=== PATIENT | male | born 2000 | race Caucasian/White ===

== ENCOUNTER 2021-01-12 19:42 | Emergency (ER) | payer SELFPAY ==
[~2021-01-12] VITALS: Ht 177.8 cm; Wt 63.6 kg
[2021-01-12 19:44] VITALS: BP 130/68
[2021-01-12] MEDS ORDERED: LIDOcaine 1% W/epiNEPHrine 1:200,000 10ml vial IJ ONE (21:00)
[2021-01-12] MEDS ORDERED: TETanus/Pertussis (Acell)/Diphther VAC/PF (Tdap-Adult) 0.5ml syringe IMVAC ONE (21:00)
--- NOTE | 2021-01-12 21:06 | NUR ---
WOUND TO RIGHT INNTER THIGH BLEEDING CONTROLLED, PT REPORTS HE IRRIGATED IT AND PUT ANTIBIOTIC CREAM ON IT PRIOR TO COMING HERE. INCIDENT HAPPENED APROX 3 HR AGO. WILL NEED TETNUS SHOT. WOUND 6 CM X 4 CM
--- NOTE | 2021-01-12 22:24 | NUR ---
pa eugene at bedside SUTURING WOUND. TRIPLE ANTIBIOTIC AND NON STICK DRESSING TO BE APPLIED, THEN PT TO BE DC READY.
[2021-01-12] MEDS ORDERED: bacitracin 15gm ointment TP ONE (22:25)
== END 2021-01-12 22:44 | disposition home or self-care (01) ==
LOC: ER 19:42
DX: S71.111A Laceration without foreign body, right thigh, initial encounter (principal); W22.8XXA Striking against or struck by other objects, initial encounter; Y93.89 Activity, other specified; Y92.89 Other specified places as the place of occurrence of the external cause; Y99.8 Other external cause status
CPT/HCPCS: 12002; 90471; 90715; 99283

== ENCOUNTER 2021-04-24 00:13 | Inpatient (IN) | payer BC ==
[~2021-04-24] VITALS: Ht 172.7 cm; Wt 63.6 kg
[2021-04-24 01:06] LABS: ALANINE AMINOTRANSFERASE 22 U/L (12-78); ALBUMIN/GLOBULIN RATIO 1.3 (1.1-1.5); ALKALINE PHOSPHATASE 72 IU/L (20-180); ANION GAP 12 (8-16); ASPARTATE AMINO TRANSFERASE 14 U/L (10-37); BILIRUBIN,TOTAL 0.4 MG/DL (0.1-1.0); BLOOD UREA NITROGEN 10 MG/DL (7-18); BUN/CREATININE RATIO 12.7 (5.4-32.0); CALCIUM 8.7 MG/DL (8.5-10.1); CHLORIDE 108 MMOL/L (99-107); CREATININE 0.79 MG/DL (0.60-1.10); GLUCOSE 104 MG/DL (70-104); LIPASE 136 U/L (73-393); POTASSIUM 3.5 MMOL/L (3.5-5.1); SODIUM 145 MMOL/L (135-145); TOTAL CARBON DIOXIDE 25.5 MMOL/L (24-32); TOTAL PROTEIN 7.2 G/DL (6.4-8.2); eGFR > 90 ML/MIN
[2021-04-24] MEDS ORDERED: morphine 4 MG/ML inj SYRINge IV ONE (01:20)
[2021-04-24] MEDS ORDERED: ondansetron/PF 4mg/2ml inj IV ONE (01:20)
[2021-04-24 01:22] LABS: BASOPHILS % (AUTO) 0.6 % (0-1); EOSINOPHILS % (AUTO) 0.9 % (0-6); LYMPHOCYTES # (AUTO) 2.3 X10'3 (1.1-4.8); LYMPHOCYTES % (AUTO) 45.2 % (21-51); MEAN CORPUSCULAR HEMOGLOBIN 29.7 PG (27.0-31.0); MEAN CORPUSCULAR HGB CONC 34.1 g/dL (33.0-36.5); MEAN CORPUSCULAR VOLUME 86.9 FL (78-98); MEAN PLATELET VOLUME 8.9 FL (7.4-10.4); MONOCYTES # (AUTO) 0.5 X10'3 (0-0.9); NEUTROPHILS # (AUTO) 2.3 X10'3 (1.8-7.7); NEUTROPHILS % (AUTO) 44.3 % (42-75); PLATELET COUNT 285 X10'3 (140-440); RED BLOOD COUNT 5.07 X10'6 (4.70-6.10); RED CELL DISTRIBUTION WIDTH 12.5 % (11.5-14.5); WHITE BLOOD COUNT 5.1 X10'3 (4.5-11.0)
[2021-04-24] MEDS ORDERED: HYDROmorphone 1 mg/ml syringe IV ONE (04:55)
--- NOTE | 2021-04-24 05:18 | NUR ---
PT HAS HIGH ANXIETY AND IS NERVOUS ABOUT NG TUBE INSERTION. MD ORDERED DILAUDID FOR PAIN CONTROL PRIOR TO INSERTION OF TUBE. PT WAS MEDICATED PRIOR TO PROCEDURE. HE BARELY TOLERATED THE COVID SWAB AND WAS RESISTING THE PLACEMENT OF THE NG TUBE. I ATTEMPTED THE LEFT NARE WITH A 16f AND ANOTHER RN ATTEMPTED THE RIGHT NARE WITH THE 16F. WE THEN ATTEMPTED A 14F IN THE LEFT NARE AND WAS AGAIN UNSUCCESSFUL. PT WAS GIVEN A FEW MINUTES TO COMPOSE HIMSELF HE IS SOBBING HYSTERICALLY.
[2021-04-24] MEDS ORDERED: DUPI300S SQ (09:55)
--- NOTE | 2021-04-24 09:59 | NUR ---
DR. SEARS INFORMED THAT TRAVEL COORDINATOR WAS UNABLE TO GET NG TUBE INSERTED. NEW ORDERS RECEIVED AND THIS NURSE WILL TRY TO REINSERT NG TUBE.
[2021-04-24] MEDS ORDERED: LIDOcaine 2% 10ml TOPICAL JELLY (Urojet) MM ONE (10:00)
[2021-04-24] MEDS ORDERED: LORazepam 2 mg/ml vial IV ONE ×2 (10:00→20:00)
[2021-04-24] MEDS ORDERED: diatr meglu/diatrizoate 30ml oral sol.-(3 dose) bottle PO SCH (10:17)
[2021-04-24] MEDS: diatr meglu/diatrizoate 30ml oral sol.-(3 dose) bottle PO SCH ×3 (10:30→16:14)
[2021-04-24] MEDS: normal saline 1000ml 1,000 ML IV SCH ×2 (10:36→15:10)
[2021-04-24] MEDS: heparin, porcine 5000 units/ml vial SQ SCH ×2 (10:38→20:53)
[2021-04-24] MEDS: ondansetron/PF 4mg/2ml inj IV PRN ×2 (10:43→22:57)
--- NOTE | 2021-04-24 10:46 | NUR ---
NGT placed down L nares. Pt tolerated the procedure. +auscilation of air to confirm placement. Pt's lower abd pain comes in waves.
[2021-04-24] MEDS ORDERED: magnesium hydroxide 30ml (MOM) UD suspension NG PRN (13:15)
[2021-04-24] MEDS: HYDROmorphone inj. 0.5 MG/0.5 ML DISP.SYRIN IV PRN ×2 (13:46→19:46)
[2021-04-24 14:08] LABS: CLARITY,URINE CLEAR (Clear); COLOR,URINE YELLOW (Yellow); GLUCOSE, URINE NEGATIVE (Neg); KETONES,URINE NEGATIVE (Neg); LEUKOCYTE ESTERASE ,URINE NEGATIVE (Neg); NITRITES, URINE NEGATIVE (Neg); OCCULT BLOOD,URINE NEGATIVE (Neg); PROTEIN,URINE NEGATIVE (Neg); UROBILINOGEN,URINE 0.2 E.U/dL (0.2-1.0)
[2021-04-24 14:10] LABS: UA COLLECTION TYPE NON-SPECIFIED
--- NOTE | 2021-04-24 16:07 | NUR ---
Report given to JAYE Jiménez on the Surgical floor.
--- NOTE | 2021-04-24 17:35 | NUR ---
Received pt from ED Addendum: 04/24/21 at 1902 by Megan Cortez RN pt pulled his NG and was vomiting, crying and screaming. new NG will be reinserted pre 's orders.
[2021-04-24] MEDS ORDERED: Neutra Phos packet PO PRN (18:10)
--- NOTE | 2021-04-24 18:10 | NUR ---
Patient in room [facility] 341. I have received report from JAYE Gumzan and had the opportunity to ask questions and assume patient care.
--- NOTE | 2021-04-24 18:15 | NUR ---
Problems reprioritized. Patient report given, questions answered & plan of care reviewed with maris CEE.
[2021-04-24 19:00] VITALS: BP 114/74
[2021-04-24] MEDS: docusate sodium 100mg/10ml UD cup NG SCH (20:53)
[2021-04-24 21:00] VITALS: BP 122/69
[2021-04-24 21:45] LABS: BASOPHILS % (AUTO) 0.2 % (0-1); EOSINOPHILS % (AUTO) 0.1 % (0-6); HEMATOCRIT 46.1 % (42.0-52.0); HEMOGLOBIN 15.6 g/dl (14.0-17.9); LYMPHOCYTES # (AUTO) 0.8 X10'3 (1.1-4.8); LYMPHOCYTES % (AUTO) 7.2 % (21-51); MEAN CORPUSCULAR HGB CONC 33.8 g/dL (33.0-36.5); MEAN CORPUSCULAR VOLUME 88.8 FL (78-98); MEAN PLATELET VOLUME 8.3 FL (7.4-10.4); MONOCYTES # (AUTO) 0.7 X10'3 (0-0.9); MONOCYTES % (AUTO) 6.4 % (2-12); NEUTROPHILS # (AUTO) 9.1 X10'3 (1.8-7.7); NEUTROPHILS % (AUTO) 86.1 % (42-75); PLATELET COUNT 265 X10'3 (140-440); RED BLOOD COUNT 5.19 X10'6 (4.70-6.10); RED CELL DISTRIBUTION WIDTH 12.7 % (11.5-14.5); WHITE BLOOD COUNT 10.6 X10'3 (4.5-11.0)
--- NOTE | 2021-04-24 22:28 | NUR ---
Patient prepped for surgery
[2021-04-24] MEDS ORDERED: morphine 2 MG/ML inj. syringe IV PRN (22:40)
[2021-04-24] MEDS ORDERED: proCHLORperazine 10 MG/2 ml inj IV PRN (22:40)
[2021-04-24] MEDS ORDERED: ringers solution, lacted 1,000 ML IV SCH (22:40)
[2021-04-24] MEDS ORDERED: ondansetron/PF 4mg/2ml inj IV PRN (22:40)
[2021-04-24] MEDS ORDERED: meperidine/PF 25mg/ml syringe IV PRN ×3 (22:40)
[2021-04-24] MEDS ORDERED: morphine 4 MG/ML inj SYRINge IV PRN (22:40)
[2021-04-24] MEDS ORDERED: midazolam 1 mg/ML 2ml injection ONE (22:59)
[2021-04-24] MEDS ORDERED: fentaNYL /PF 50mcg/ml 5ml ampule ONE (23:00)
[2021-04-24 23:05] VITALS: BP 121/67
[2021-04-24 23:07] VITALS: BP 121/67
[2021-04-24] MEDS ORDERED: LIDOcaine 2% (20mg/ml) 5ml vial ONE (23:19)
[2021-04-24] MEDS ORDERED: propofol inj 20 ML IV ONE (23:19)
[2021-04-24] MEDS ORDERED: cefazolin/dext.iso 2gm/100ml BAG IV ONE (23:20)
[2021-04-24] MEDS ORDERED: ondansetron/PF 4mg/2ml inj ONE (23:20)
[2021-04-24] MEDS ORDERED: neostigmine methylsulfate 1 MG/ML 10ml vial ONE (23:20)
[2021-04-24] MEDS ORDERED: sevoflurane 250ml liquid IH ONE (23:20)
[2021-04-24] MEDS ORDERED: rocuronium 10mg/ml inj IV ONE (23:20)
[2021-04-24] MEDS ORDERED: dexamethasone sod phosphate 10mg/ml inj ONE (23:20)
[2021-04-24] MEDS ORDERED: glycopyrrolate 0.2mg/ml inj ONE (23:20)
--- NOTE | 2021-04-24 23:36 | NUR ---
Patient taken down to surgery
[2021-04-25] VITALS (16 sets, daily range): BP systolic 102–130; BP diastolic 51–73
[2021-04-25] MEDS ORDERED: BUPIVAcaine/PF 2.5mg/ml (0.25%) 10ml vial ONE (00:22)
[2021-04-25] MEDS ORDERED: BUPIVACAINE liposomal/PF 13.3 MG/ML vial IM ONE (00:24)
--- NOTE | 2021-04-25 01:00 | NUR ---
RECOVERED PT IN OR#1 PT ARROUSABLE NO DISTRESS VSS ISLAND DRESSING TO ABD CDI, GREEN CATH TO GRAVITY DRAINING CLEAR YELLOW URINE. CONT TO MONITOR Addendum: 04/25/21 at 0142 by Flor Goff RN Amended: Links added.
[2021-04-25] MEDS: normal saline 1000ml 1,000 ML IV SCH ×3 (01:10→21:10)
--- NOTE | 2021-04-25 01:24 | NUR ---
Rec'd report from [facility]. Exp lap - found nothing. BM directly prior to procedure. VSS 97% RA, 120/80, HR in the 70's, NG pulled in OR, 25 demerol given for pain, anesthesiologist wants continuous pulse ox as narcan had to be administered to wake up.
--- NOTE | 2021-04-25 01:25 | NUR ---
PT MORE AWAKE ALERT VSS NO DISTRESS, C/O FEELING SORE, DEMEROL IV GIVEN PER ORDERS, PT MEETS CRITERIA TO DC TO ROOM REPORT CALLED TO JAYE Addendum: 04/25/21 at 0143 by Flor Goff RN Amended: Links added.
--- NOTE | 2021-04-25 01:30 | NUR ---
Patient returned to room from surgery. Administered torodol for pain, circled drainage on island dressing to medial abdomen, provided with ice pack. Patient returned without and NG, varghese catheter in place. Continuous pulse ox applied. Current O2 saturations 97% on RA.
[2021-04-25] MEDS: ketorolac trometh. 30mg/ml inj. IV SCH ×4 (01:43→19:25)
[2021-04-25] MEDS: ceFOXitin 2GM-NS 100mL ADDvant 100 ML IV SCH ×4 (02:27→19:24)
[2021-04-25] MEDS: HYDROmorphone inj. 0.5 MG/0.5 ML DISP.SYRIN IV PRN ×4 (05:45→21:59)
--- NOTE | 2021-04-25 06:17 | NUR ---
Problems reprioritized. Patient report given, questions answered & plan of care reviewed with JAYE Garcia.
[2021-04-25] MEDS: docusate sodium 100mg/10ml UD cup NG SCH (08:27)
[2021-04-25] MEDS: heparin, porcine 5000 units/ml vial SQ SCH ×2 (08:28→19:26)
--- NOTE | 2021-04-25 15:06 | NUR ---
PAGER ID: [phone] MESSAGE: [phone] Priyanka Dominguez: patient has a varghese with no varghese orders. can I DC this? thanks!
--- NOTE | 2021-04-25 17:55 | NUR ---
FC dc'd, patient urinating in urinal already. Chicken broth and ice water given to him. Clear liquid dinner tray ordered.
--- NOTE | 2021-04-25 18:08 | NUR ---
Patient in room [facility] 341. I have received report from JAYE Garcia and had the opportunity to ask questions and assume patient care.
--- NOTE | 2021-04-25 18:13 | NUR ---
Problems reprioritized. Patient report given, questions answered & plan of care reviewed with Tanya Murphy RN.
--- NOTE | 2021-04-25 18:55 | NUR ---
Pt deep breathing. States he felt a pop when he coughed and incision was bleeding. Minute amount of blood did not saturate dressing or go beyond previous shadowing. Changed island to visualize integrity of sindhu. All intact. Minor seeping of lower sindhu.
[2021-04-25] MEDS: docusate sod 100mg capsule PO SCH (19:26)
[2021-04-25] MEDS: HYDROcodone/acetaminophen 10/325mg tab PO PRN (23:45)
[2021-04-26] MEDS: ceFOXitin 2GM-NS 100mL ADDvant 100 ML IV SCH ×4 (02:27→20:29)
[2021-04-26] MEDS: ketorolac trometh. 30mg/ml inj. IV SCH ×4 (02:33→20:30)
--- NOTE | 2021-04-26 06:26 | NUR ---
Problems reprioritized. Patient report given, questions answered & plan of care reviewed with JAYE Villalba.
--- NOTE | 2021-04-26 06:45 | NUR ---
Patient in room [facility] 341. I have received report from JAYE NGUYEN and had the opportunity to ask questions and assume patient care.
[2021-04-26 06:59] LABS: BASOPHILS % (AUTO) 0.2 % (0-1); EOSINOPHILS % (AUTO) 0.1 % (0-6); HEMOGLOBIN 11.9 g/dl (14.0-17.9); LYMPHOCYTES # (AUTO) 1.9 X10'3 (1.1-4.8); LYMPHOCYTES % (AUTO) 34.5 % (21-51); MEAN CORPUSCULAR HGB CONC 34.1 g/dL (33.0-36.5); MEAN CORPUSCULAR VOLUME 87.8 FL (78-98); MEAN PLATELET VOLUME 8.6 FL (7.4-10.4); MONOCYTES # (AUTO) 0.4 X10'3 (0-0.9); MONOCYTES % (AUTO) 7.7 % (2-12); NEUTROPHILS # (AUTO) 3.2 X10'3 (1.8-7.7); NEUTROPHILS % (AUTO) 57.5 % (42-75); PLATELET COUNT 152 X10'3 (140-440); RED BLOOD COUNT 3.98 X10'6 (4.70-6.10); RED CELL DISTRIBUTION WIDTH 12.4 % (11.5-14.5); WHITE BLOOD COUNT 5.5 X10'3 (4.5-11.0)
[2021-04-26] MEDS: normal saline 1000ml 1,000 ML IV SCH (07:10)
[2021-04-26] MEDS: heparin, porcine 5000 units/ml vial SQ SCH ×2 (08:38→20:00)
[2021-04-26] MEDS: docusate sod 100mg capsule PO SCH ×2 (08:38→20:30)
[2021-04-26 09:08] VITALS: BP 112/58
[2021-04-26] MEDS: HYDROcodone/acetaminophen 10/325mg tab PO PRN (12:15)
[2021-04-26 12:27] VITALS: BP 116/62
--- NOTE | 2021-04-26 13:37 | NUR ---
Nutrition Consult "Allergies": Pt has peanut allergy in EMR though reports "sugar" allergy causing skin to slough per RN. Current diet order is now regular w/ no lactose and gluten per EMR. SUNNY d/w JAYE pt hx psoriasis and no such thing as sugar allergy w/ pt PO 100% prior clear liquid meal which is all simple sugars. Dietary aware of food preferences. Addendum: 04/26/21 at [address] Amended: Links added.
[2021-04-26 18:00] VITALS: BP 115/70
--- NOTE | 2021-04-26 18:40 | NUR ---
Problems reprioritized. Patient report given, questions answered & plan of care reviewed with JAYE NGUYEN.
[2021-04-26] MEDS: magnesium hydroxide 30ml (MOM) UD suspension PO SCH (20:29)
[2021-04-27] VITALS: BP 111/65
[2021-04-27] MEDS: HYDROcodone/acetaminophen 10/325mg tab PO PRN ×2 (00:53→15:02)
[2021-04-27] MEDS: ceFOXitin 2GM-NS 100mL ADDvant 100 ML IV SCH ×3 (02:51→14:00)
[2021-04-27] MEDS: ketorolac trometh. 30mg/ml inj. IV SCH ×3 (02:53→14:00)
--- NOTE | 2021-04-27 06:29 | NUR ---
Problems reprioritized. Patient report given, questions answered & plan of care reviewed with JAYE Villalba.
--- NOTE | 2021-04-27 06:44 | NUR ---
Patient in room REBA 347B. I have received report from JAYE NGUYEN and had the opportunity to ask questions and assume patient care.
[2021-04-27 07:00] VITALS: BP 104/62
[2021-04-27] MEDS: magnesium hydroxide 30ml (MOM) UD suspension PO SCH (08:00)
[2021-04-27] MEDS: heparin, porcine 5000 units/ml vial SQ SCH (08:53)
[2021-04-27] MEDS: docusate sod 100mg capsule PO SCH (08:53)
[2021-04-27 11:00] VITALS: BP 117/63
--- NOTE | 2021-04-27 17:02 | NUR ---
PATIENT STABLE AND APPROPRIATE FOR DISCHARGE, IV TAKEN OUT, EDUCATION GIVEN, ALL BELONGINGS SENT WITH PATIENT, PATIENT WALKED TO LOBBY TO AN AWAITING CAR WHERE MOM WILL TAKE PATIENT HOME
== END 2021-04-27 17:05 | disposition home or self-care (01) | DRG 356 ==
LOC: ER 00:14 → ED HOLD 05:08 → SUR 3N 17:05
PROVIDERS: ADMIT Internal Medicine; ATTEND Family Medicine
PROC: 0DJ60ZZ Inspection of Stomach, Open Approach (ICD-10-PCS; principal; 2021-04-25)
PROC: 3E0T3BZ Introduction of Anesthetic Agent into Peripheral Nerves and Plexi, Percutaneous Approach (ICD-10-PCS; 2021-04-25)
PROC: 3E0T33Z Introduction of Anti-inflammatory into Peripheral Nerves and Plexi, Percutaneous Approach (ICD-10-PCS; 2021-04-25)
DX: K56.600 Partial intestinal obstruction, unspecified as to cause (principal); K65.9 Peritonitis, unspecified; U07.1 COVID-19; L40.9 Psoriasis, unspecified; Z91.010 Allergy to peanuts; K56.7 Ileus, unspecified
CPT/HCPCS: 96374; 96375; 99285; Z7506; Z7508; 36415; 71045; 71250; 74176; 80053; 81003; 82948; 83690; 85025; 87635; A4215; A4618; A6253; A6449; A7000; C1758; C9290; C9803; G0378; J0694; J1100; J1170; J1644; J1885; J2001; J2060; J2175; J2250; J2270; J2405; J2704; J2710; J3010; J3490; J7030; J7120; Q9963